=== PATIENT | female | born 1960 | race Caucasian/White ===

== ENCOUNTER 2017-01-28 09:40 | Day surgery (SDC) | payer BC ==
[~2017-01-28 09:40] MED LIST: ATROPINE SULFATE 0.4 MG/1 ML VIAL IVP PRN; HYDROmorphone 2 MG/1 ML IVP PRN; LIDOCAINE W/ SODIUM BICARB 0.5 ML SYR ONE; Lactated Ringers 1,000 ML PRIMARY IV ONE; Lactated Ringers 1,000 ML PRIMARY IV SCH; MIDAZOLAM 5 MG/1 ML ONE; NORMAL SALINE 10 ML SYRINGE FLUSH IVP PRN; ONDANSETRON 4 MG/2 ML VIAL IVP PRN; Ondansetron ODT Tab 8 MG TAB PO PRN; ceFAZolin Inj 2gm (Premix) 50 ML IV ONE; fentaNYL Inj 100 MCG/2 ML VIAL IVP PRN; fentaNYL Inj 250 MCG/5 ML VIAL ONE
[2017-01-28] MEDS ORDERED: LIDOCAINE MPF 2% - 5 ML (20 MG/1 ML) ONE (12:13)
[2017-01-28] MEDS ORDERED: Sodium Chloride 0.9% vial 10 ML ONE (12:14)
[2017-01-28] MEDS ORDERED: ONDANSETRON 4 MG/2 ML VIAL ONE (12:15)
[2017-01-28] MEDS ORDERED: DEXAMETHASONE SOD PHOSPHATE 4 MG/1 ML VIAL ONE (12:15)
[2017-01-28] MEDS ORDERED: EPINEPHrine Inj (1:1,000) 30mg/30ml vial ONE (12:18)
[2017-01-28] MEDS ORDERED: Ropivacaine 0.2% VIAL 20 ML ONE (12:18)
[2017-01-28] MEDS ORDERED: ePHEDrine Inj 50 MG/ML AMP ONE (12:56)
[2017-01-28] MEDS ORDERED: KETOROLAC 30 MG/1 ML VIAL ONE (12:59)
[2017-01-28] MEDS ORDERED: Lactated Ringers 1,000 ML PRIMARY IV ONE (13:22)
[2017-01-28] MEDS ORDERED: BETAMET ACET/BETAMET NA PH 6 MG/1 ML - 5 ML ONE (13:28)
[2017-01-28] MEDS ORDERED: BISACODYL 5 MG TABLET PO PRN (13:52)
[2017-01-28] MEDS ORDERED: MORPHINE SULFATE 2 MG/1 ML IVP PRN (13:52)
[2017-01-28] MEDS ORDERED: oxyCODONE/APAP 7.5/325 Tab 1 TAB TAB PO PRN (13:52)
[2017-01-28] MEDS ORDERED: IBUPROFEN 400 MG TABLET PO PRN (13:52)
[2017-01-28] MEDS ORDERED: Prochlorperazine Tab 10 MG TAB PO PRN (13:52)
[2017-01-28] MEDS ORDERED: ACETAMINOPHEN 325 MG TABLET PO PRN (13:52)
[2017-01-28] MEDS ORDERED: MAG HYDROX/AL HYDROX/SIMETH 30 ML SUSP PO PRN (13:52)
[2017-01-28] MEDS ORDERED: ONDANSETRON 4 MG/2 ML VIAL IVP PRN (13:52)
[2017-01-28] MEDS ORDERED: CALCIUM CARBONATE 500 MG (TUMS) CHEWABLE TABLET PO PRN (13:52)
[2017-01-28] MEDS ORDERED: NORMAL SALINE 10 ML SYRINGE FLUSH IVP PRN (13:52)
[2017-01-28] MEDS ORDERED: diphenhydrAMINE 25 MG CAPSULE PO PRN (13:52)
[2017-01-28] MEDS ORDERED: Ondansetron ODT Tab 8 MG TAB PO PRN (13:52)
[2017-01-28] MEDS ORDERED: BISACODYL 10 MG SUPPOSITORY RECTAL PRN (13:52)
[2017-01-28] MEDS ORDERED: HYDROmorphone 2 MG/1 ML ONE (13:56)
[2017-01-28] MEDS ORDERED: Lactated Ringers 1,000 ML PRIMARY IV SCH (14:00)
[2017-01-28 14:13] VITALS: RESP 14
[2017-01-28] MEDS ORDERED: HYDROcodone-APAP 7.5 MG-325 MG TABLET PO ONE ×2 (14:46→15:03)
--- NOTE | 2017-01-28 15:56 | OPS CRUTCH ---
Diagnosis : Status Post Right Knee Scope Referral Reason: Gait Training/Knee Cryo Cuff/Walker O: The patient was instructed in the use of crutches with gait belt on level surfaces, weight-bearing as tolerated. The patient was also issued a Cryo- Cuff and a walker and instructed in their proper use and care. P: No further therapy is indicated at this time. MTDD
[2017-01-28 16:01] VITALS: TEMP 97.1
[2017-01-29] MEDS ORDERED: ASPIRIN 325 MG EC TABLET PO SCH (09:00)
== END 2017-01-28 15:45 | disposition home or self-care (01) ==
LOC: SDSC 09:40
PROVIDERS: ATTEND Orthopaedic Surgery
DX: S83.241A Other tear of medial meniscus, current injury, right knee, initial encounter (principal); M94.261 Chondromalacia, right knee; M65.9 Synovitis and tenosynovitis, unspecified
CPT/HCPCS: 29876; 29881; 97116; A4216; J0171; J0690; J0702; J1100; J1170; J1885; J2001; J2250; J2405; J2704; J2795; J3010; J7120